=== PATIENT | male | born 1975 | race Caucasian/White ===

== ENCOUNTER 2016-10-10 06:56 | Emergency (ER) | payer OTHER ==
[~2016-10-10 06:56] MED LIST: PRIL20CA OR; TRAZ50TA OR; ZOLO50TA OR
[2016-10-10] MEDS ORDERED: METOCLOPRAMIDE INJ 10MG/2ML VIAL (J2765) As Ordered ONE (07:28)
[2016-10-10] MEDS ORDERED: MORPHINE 4 MG/ML 1ML SYRINGE As Ordered ONE (07:28)
[2016-10-10 07:53] LABS: BASO % 0.8 % (0.0-1.0); EOS # 0.1 K/mm3 (0.0-0.50); EOS % 2.7 % (0.0-3.0); LARGE UNSTAINED CELL # 0.1 K/mm3 (0.0-0.4); LARGE UNSTAINED CELL % 1.8 % (0.0-4.0); LYMPH # 1.3 K/mm3 (1.5-4.5); LYMPH % 24.6 % (24.0-44.0); MEAN CORPUSCULAR HEMOGLOBIN 30.7 pg (27.0-33.0); MEAN CORPUSCULAR HGB CONC 35.2 g/dl (32.0-36.5); MEAN CORPUSCULAR VOLUME 87.1 fl (80.0-96.0); MONO # 0.3 K/mm3 (0.0-0.8); MONO % 6.4 % (0.0-5.0); NEUTROPHILS # 3.4 K/mm3 (1.8-7.7); NEUTROPHILS % 63.7 % (36.0-66.0); PLATELET COUNT, AUTOMATED 203 k/mm3 (150-450); RED CELL DISTRIBUTION WIDTH 12.6 % (11.5-14.5); WHITE BLOOD COUNT 5.3 K/mm3 (4.0-10.0)
[2016-10-10 08:07] LABS: ALBUMIN/GLOBULIN RATIO 1.38 (1.00-1.93); ALKALINE PHOSPHATASE 86 U/L (45-117); ALT/SGPT 33 U/L (12-78); AMYLASE 50 U/L (25-115); ANION GAP 7 MEQ/L (8-16); AST/SGOT 24 U/L (15-37); BILIRUBIN,DIRECT 0.2 MG/DL (0.0-0.2); BILIRUBIN,TOTAL 0.6 MG/DL (0.2-1.0); BLOOD UREA NITROGEN 15 MG/DL (7-18); CALCIUM LEVEL 8.9 MG/DL (8.5-10.1); CARBON DIOXIDE LEVEL 27 MEQ/L (21-32); CHLORIDE LEVEL 107 MEQ/L (98-107); CREATININE FOR GFR 1.15 MG/DL (0.70-1.30); GLOMERULAR FILTRATION RATE > 60.0 (>60); GLUCOSE, FASTING 96 MG/DL (70-105); POTASSIUM SERUM 4.2 MEQ/L (3.5-5.1); SODIUM LEVEL 141 MEQ/L (136-145); TOTAL PROTEIN 6.9 GM/DL (6.4-8.2)
[2016-10-10] MEDS ORDERED: ISOVUE-370 76% 100ML VIAL (Q9967) As Ordered ONE (08:49)
--- NOTE | 2016-10-10 09:51 | EDDOCDS ---
Physician Documentation [facility] Name: Louie Alegrai Age: 41 yrs Sex: Male : 1975 Arrival Date: 10/10/2016 Time: 06:56 Bed I5 / M5 Private MD: Disposition: 10/10/16 09:46 Discharged to Home/Self Care. Impression: Nausea and vomiting - likely viral gastroenteritis, partial ileus, Diarrhea, unspecified. - Condition is Stable. - Discharge Instructions: Ileus, Clear Liquid Diet, Viral Gastroenteritis. - Prescriptions for ZOFRAN ODT 4 mg Oral - dissolve 1 tablet by ORAL route every 6-8 hours As needed do not chew, do not swallow whole; 10 tablet. - Medication Reconciliation, Local Pharmacy Hours form. - Follow up: Jeanie Selby [facility]; When: Call to arrange an appointment; Reason: Recheck today's complaints. Follow up: Emergency Department; When: As needed; Reason: Worsening of conditions. - Problem is new. - Symptoms have improved. - Notes: recommend home at rest today, clear liquid diet for next 24 hrs. advance as tolerated. arrange follow up with your physician. return to ER if worsening conditions Historical: - Allergies: no known allergies; - Home Meds: 1. Zoloft 25 mg Oral tab 1 tab once daily 2. BuSpar 15 mg oral tab tid 3. ropinirole Unknown oral nightly 4. mirtazapine Unknown Oral nightly 5. Xalatan 0.005 % Opht drop 1 drop once daily - PMHx: Anxiety; Depression; pigment dispersion glaucoma; - PSHx: esophageal replacement (1974); transverse colon replacement (1974); left thumb tendon; - Social history: Smoking status: Patient states former smoker of tobacco. No barriers to communication noted, The patient speaks fluent [place]. - Family history: Not pertinent. - : The pt / caregiver states he / she is not on anticoagulants. Home medication list is obtained from the patient. - Exposure Risk Screening:: None identified. Vital Signs: 10/10 07:06 BP 135 / 79; Pulse 57; Resp 20; Temp 99(O); Pulse Ox 95% on R/A; Weight 97.52 kg / jjr 214.99 lbs (R); Height 6 ft. 5 in. (195.58 cm) (R); Pain 7/10; 08:20 BP 121 / 69; Pulse 45; Resp 18; Temp 97.2(O); Pulse Ox 97% on R/A; Pain 4/10; dem1 09:47 BP 132 / 75; Pulse 45; Resp 18; Temp 96.9(O); Pulse Ox 99% ; Pain 4/10; srm 07:06 Body Mass Index 25.50 (97.52 kg, 195.58 cm) r MDM: 07:19 IV Saline Lock ordered. ar2 07:19 Undress patient appropriately for examination ordered. ar2 07:19 NS 0.9% 1000 ml IV at bolus once ordered. ar2 07:19 Metoclopramide 10 mg IV at 40 mg/hr once over 15 mins ordered. ar2 07:19 morphine 4 mg IVP once ordered. ar2 07:20 NOTHING BY MOUTH+DIET ordered. EDMS 07:21 Amylase Ordered. EDMS 07:21 Basic Metabolic Profile Ordered. EDMS 07:21 CBC with Diff Ordered. EDMS 07:21 Lipase Ordered. EDMS 07:21 Liver Profile Ordered. EDMS 07:22 Abdomen, Flat\E\Upright,PA Chest Ordered. EDMS 07:32 Financial registration complete. lg 07:48 [facility] Payment Agreement was scanned into [employer] and attached to record. lg 08:28 Basic Metabolic Profile Reviewed. ar2 08:28 CBC with Diff Reviewed. ar2 08:28 Amylase Reviewed. ar2 08:28 Lipase Reviewed. ar2 08:28 Liver Profile Reviewed. ar2 08:39 CT Chest With Contrast Ordered. EDMS Administered Medications: 07:32 Drug: NS 0.9% 1000 ml [sodium chloride 0.9 % intravenous solution] Route: IV; Rate: srm bolus; Site: left antecubital; 09:47 Follow up: BP 132 / 75; Pulse 45 bpm; Resp 18 bpm; Temp 96.9 Oral; Pulse Ox 99% ; Pain srm 4/10 Adult; IV Status: Completed infusion 07:32 Drug: morphine 4 mg [morphine 4 mg/mL intravenous cartridge (1 mL)] Route: IVP; Site: srm left antecubital; 08:32 Follow up: Response: Pain is decreased srm 07:34 Drug: Metoclopramide 10 mg [metoclopramide 5 mg/mL injection solution] Route: IV; Rate: srm 40 mg/hr; Infused Over: 15 mins; Site: left antecubital; 08:00 Follow up: IV Status: Completed infusion srm Signatures: Dispatcher [employer] Giuliana Jaimes RN RN Neeta Lowe, Erika Moses lg, RN RN jjr Robertshaw, Aaron, PA-C PA-C ar2 The chart was reviewed and I authenticate all verbal orders and agree with the evaluation and treatment provided.Attachments: 07:48 [facility] Payment Agreement lg MTDD
--- NOTE | 2016-10-10 09:51 | EDDOCDS ---
Nurse's Notes [facility] Name: Louie Alegria Age: 41 yrs Sex: Male : 1975 Arrival Date: 10/10/2016 Time: 06:56 Bed I5 / M5 Private MD: Diagnosis: Nausea and vomiting-likely viral gastroenteritis, partial ileus;Diarrhea, unspecified Presentation: 10/10 07:02 Presenting complaint: Patient states: sudden onset burning pain to abdomen 0610 this jjr morning, nausea and diarrhea since then. Adult Sepsis Screening: The patient does not have new or worsening altered mentation. Patient's respiratory rate is less than 22. Systolic blood pressure is greater than 100. Patient has a qSOFA score of 0- Negative Sepsis Screen. Suicide/Homicide risk assessment- the patient denies having any suicidal and/or homicidal ideations and does not present with any other emotional, behavioral or mental health complaints. Status: The patient is an active duty insurance service representative. Transition of care: patient was not received from another setting of care. 07:02 Acuity: YVONNE Level 3 jjr 07:02 Method Of Arrival: Walkin/Carried/Asstd jjr Triage Assessment: 07:05 General: Appears uncomfortable. Pain: Location: abdomen. Pt Declines HIV testing. GI: jjr Reports diarrhea, upper abdominal pain, nausea. Historical: - Allergies: no known allergies; - Home Meds: 1. Zoloft 25 mg Oral tab 1 tab once daily 2. BuSpar 15 mg oral tab tid 3. ropinirole Unknown oral nightly 4. mirtazapine Unknown Oral nightly 5. Xalatan 0.005 % Opht drop 1 drop once daily - PMHx: Anxiety; Depression; pigment dispersion glaucoma; - PSHx: esophageal replacement (1974); transverse colon replacement (1974); left thumb tendon; - Social history: Smoking status: Patient states former smoker of tobacco. No barriers to communication noted, The patient speaks fluent Uzbek. - Family history: Not pertinent. - : The pt / caregiver states he / she is not on anticoagulants. Home medication list is obtained from the patient. - Exposure Risk Screening:: None identified. Screenin:37 Screening information is obtained from the patient. Fall risk: No risks identified. srm Assistance ADL's: requires no assistance with activities of daily living. Abuse/DV Screen: The patient / caregiver reports he/she is: not in a situation that causes fear, pain or injury. Nutritional screening: No deficits noted. Advance Directives: There is no active DNR order. home support is adequate. Assessment: 07:37 General: Appears in no apparent distress, Behavior is anxious, appropriate for age, srm cooperative. Neurological: No deficits noted. Respiratory: Airway is patent Respiratory effort is even, unlabored, Breath sounds are clear bilaterally. GI: Abdomen is non- distended Bowel sounds present X 4 quads. Abd is soft and non tender X 4 quads. Derm: No deficits noted. 08:32 Pain: Pain currently is 3 out of 10 on a pain scale. Respiratory: Airway is patent srm Respiratory effort is even, unlabored. 09:05 General: Appears in no apparent distress, Behavior is appropriate for age, cooperative. srm Neurological: No deficits noted. EENT: No deficits noted. Respiratory: No deficits noted. GI: Abdomen is non- distended. Musculoskeletal: No deficits noted. 09:47 Reassessment: Patient appears in no apparent distress at this time. Patient states srm feeling better. Patient states symptoms have improved. Vital Signs: 07:06 BP 135 / 79; Pulse 57; Resp 20; Temp 99(O); Pulse Ox 95% on R/A; Weight 97.52 kg (R); jjr Height 6 ft. 5 in. (195.58 cm) (R); Pain 7/10; 08:20 BP 121 / 69; Pulse 45; Resp 18; Temp 97.2(O); Pulse Ox 97% on R/A; Pain 4/10; dem1 09:47 BP 132 / 75; Pulse 45; Resp 18; Temp 96.9(O); Pulse Ox 99% ; Pain 4/10; srm 07:06 Body Mass Index 25.50 (97.52 kg, 195.58 cm) [facility] Vitals: 07:06 Log In Time: October 10, 2016 at 06:57. jr ED Course: 06:57 Patient visited by Kartin Azar, Reg. hs2 06:57 Patient moved to Waiting hs2 07:03 Triage Initiated jjr 07:09 Patient moved to / jjr 07:10 Zia Hernandez PA-C is PHCP. ar2 07:10 Bebeto Ward MD is Attending Physician. ar2 07:10 Patient visited by Zia Hernandez PA-C. ar2 07:22 Patient visited by Ashlee Almaguer. dem1 07:22 Pt greeted and oriented to ED. Patient advised of names of staff involved in care, dem1 location of call chowdhury, wait times and NPO status. Patient has correct armband on for positive identification. Placed in gown. Bed in low position. Call light in reach. 07:27 Inserted saline lock: 20 gauge in left antecubital area and blood collected. srm 07:27 Amylase Sent. srm 07:27 Basic Metabolic Profile Sent. srm 07:27 CBC with Diff Sent. srm 07:27 Lipase Sent. srm 07:27 Liver Profile Sent. srm 07:37 The patient / caregiver is instructed regarding the plan of care and ED course. srm 07:38 Patient visited by Giuliana Mares, SHAGGY. srm 07:48 [facility] [place] Agreement was scanned into [employer] and attached to record. lg 08:21 Patient visited by Ashlee Almaguer. dem1 08:33 Patient visited by Giuliana Mares, SHAGGY. srm 08:54 Patient moved to ND srm 09:05 Patient visited by Giuliana Mares, SHAGGY. srm 09:05 Patient moved to I / srm 09:45 Jeanie Selby [facility] is Referral Physician. ar2 09:47 Discontinued lock intact, bleeding controlled, pressure dressing applied, No srm redness/swelling at site. No procedures done that require assistance. Administered Medications: 07:32 Drug: NS 0.9% 1000 ml [sodium chloride 0.9 % intravenous solution] Route: IV; Rate: srm bolus; Site: left antecubital; 09:47 Follow up: BP 132 / 75; Pulse 45 bpm; Resp 18 bpm; Temp 96.9 Oral; Pulse Ox 99% ; Pain srm 4/10 Adult; IV Status: Completed infusion 07:32 Drug: morphine 4 mg [morphine 4 mg/mL intravenous cartridge (1 mL)] Route: IVP; Site: srm left antecubital; 08:32 Follow up: Response: Pain is decreased srm 07:34 Drug: Metoclopramide 10 mg [metoclopramide 5 mg/mL injection solution] Route: IV; Rate: srm 40 mg/hr; Infused Over: 15 mins; Site: left antecubital; 08:00 Follow up: IV Status: Completed infusion srm Intake: 09:47 IV: 1000.00ml (NS); Total: 1000.00ml. srm Order Results: Lab Order: Amylase; SPEC'M 10/10/16 07:25 Test: AMYLASE; Value: 50; Range: 25-115; Units: U/L; Status: F Lab Order: Basic Metabolic Profile; [facility] 10/10/16 07:25 Test: GLUCOSE, FASTING; Value: 96; Range: 70-105; Units: MG/DL; Status: F Test: BLOOD UREA NITROGEN; Value: 15; Range: 7-18; Units: MG/DL; Status: F Test: CREATININE FOR GFR; Value: 1.15; Range: 0.70-1.30; Units: MG/DL; Status: F Test: GLOMERULAR FILTRATION RATE; Value: > 60.0; Range: >60; Status: F Test: SODIUM LEVEL; Value: 141; Range: 136-145; Units: MEQ/L; Status: F Test: POTASSIUM SERUM; Value: 4.2; Range: 3.5-5.1; Units: MEQ/L; Status: F Test: CHLORIDE LEVEL; Value: 107; Range: 98-107; Units: MEQ/L; Status: F Test: CARBON DIOXIDE LEVEL; Value: 27; Range: 21-32; Units: MEQ/L; Status: F Test: ANION GAP; Value: 7; Range: 8-16; Abnormal: Below low normal; Units: MEQ/L; Status: F Test: CALCIUM LEVEL; Value: 8.9; Range: 8.5-10.1; Units: MG/DL; Status: F Test Note: ; Units are mL/min/1.73 m2 Chronic Kidney Disease Staging per NKF: Stage I & II GFR >=60 Normal to Mildly Decreased Stage III GFR 30-59 Moderately Decreased Stage IV GFR 15-29 Severely Decreased Stage V GFR <15 Very Little GFR Left ESRD GFR <15 on [employer] Lab Order: CBC with Diff; SPEC' 10/10/16 07:25 Test: WHITE BLOOD COUNT; Value: 5.3; Range: 4.0-10.0; Units: K/mm3; Status: F Test: RED BLOOD COUNT; Value: 5.19; Range: 4.30-6.10; Units: M/mm3; Status: F Test: HEMOGLOBIN; Value: 15.9; Range: 14.0-18.0; Units: g/dl; Status: F Test: HEMATOCRIT; Value: 45.2; Range: 42.0-52.0; Units: %; Status: F Test: MEAN CORPUSCULAR VOLUME; Value: 87.1; Range: 80.0-96.0; Units: fl; Status: F Test: MEAN CORPUSCULAR HEMOGLOBIN; Value: 30.7; Range: 27.0-33.0; Units: pg; Status: F Test: MEAN CORPUSCULAR HGB CONC; Value: 35.2; Range: 32.0-36.5; Units: g/dl; Status: F Test: RED CELL DISTRIBUTION WIDTH; Value: 12.6; Range: 11.5-14.5; Units: %; Status: F Test: PLATELET COUNT, AUTOMATED; Value: 203; Range: 150-450; Units: k/mm3; Status: F Test: NEUTROPHILS %; Value: 63.7; Range: 36.0-66.0; Units: %; Status: F Test: LYMPH %; Value: 24.6; Range: 24.0-44.0; Units: %; Status: F Test: MONO %; Value: 6.4; Range: 0.0-5.0; Abnormal: Above high normal; Units: %; Status: F Test: EOS %; Value: 2.7; Range: 0.0-3.0; Units: %; Status: F Test: BASO %; Value: 0.8; Range: 0.0-1.0; Units: %; Status: F Test: LARGE UNSTAINED CELL %; Value: 1.8; Range: 0.0-4.0; Units: %; Status: F Test: NEUTROPHILS #; Value: 3.4; Range: 1.8-7.7; Units: K/mm3; Status: F Test: LYMPH #; Value: 1.3; Range: 1.5-4.5; Abnormal: Below low normal; Units: K/mm3; Status: F Test: MONO #; Value: 0.3; Range: 0.0-0.8; Units: K/mm3; Status: F Test: EOS #; Value: 0.1; Range: 0.0-0.50; Units: K/mm3; Status: F Test: BASO #; Value: 0.0; Range: 0.0-0.2; Units: K/mm3; Status: F Test: LARGE UNSTAINED CELL #; Value: 0.1; Range: 0.0-0.4; Units: K/mm3; Status: F Lab Order: Lipase; SPEC'M 10/10/16 07:25 Test: LIPASE; Value: 159; Range: 73-393; Units: U/L; Status: F Lab Order: Liver Profile; SPEC'M 10/10/16 07:25 Test: AST/SGOT; Value: 24; Range: 15-37; Units: U/L; Status: F Test: ALT/SGPT; Value: 33; Range: 12-78; Units: U/L; Status: F Test: ALKALINE PHOSPHATASE; Value: 86; Range: 45-117; Units: U/L; Status: F Test: BILIRUBIN,TOTAL; Value: 0.6; Range: 0.2-1.0; Units: MG/DL; Status: F Test: BILIRUBIN,DIRECT; Value: 0.2; Range: 0.0-0.2; Units: MG/DL; Status: F Test: TOTAL PROTEIN; Value: 6.9; Range: 6.4-8.2; Units: GM/DL; Status: F Test: ALBUMIN; Value: 4.0; Range: 3.2-5.2; Units: GM/DL; Status: F Test: ALBUMIN/GLOBULIN RATIO; Value: 1.38; Range: 1.00-1.93; Status: F Outcome: 09:46 Discharge ordered by Provider. ar2 09:47 Discharge Assessment: Patient awake, alert and oriented x 3. No cognitive and/or srm functional deficits noted. Patient verbalized understanding of disposition instructions. patient administered narcotics - yes. Pt provided with safe discharge. CT Study completed. 09:50 The following High Risk Discharge criteria are identified: None. Discharged to home srm ambulatory, with friend. Condition: stable Condition: improved. Discharge instructions given to patient, Instructed on discharge instructions, follow up and referral plans. medication usage, diet, Demonstrated understanding of instructions, medications, Pt was receptive of discharge instructions/ teaching. Prescriptions given X 1. Property :Personal belongings accompany Pt. 09:50 Patient left the ED. srm Signatures: Giuliana Mares, RN RN Neeta Lowe, Reg Reg lg Erika Steven, RN RN Zia Padilla, AARON PADonny ar2 Ashlee Almaguer dem1 Katrin Azar, Reg Reg hs2 MTDD
--- NOTE | 2016-10-10 11:17 | REP ---
Abdominal series: Four views. History: Generalized abdominal pain and nausea. No comparison studies. Findings: Upright chest radiograph shows increased density behind the heart and overall volume loss in the left hemithorax consistent with left lower lobe collapse. There is an atypical collection of what appears to be intrapleural air in the left apex extending medially to the left lung along the left mediastinum. There is soft tissue density adjacent to the aortic knob in the left mediastinal region. The right lung is clear. Heart is not enlarged. There is no evidence of free subdiaphragmatic air. Supine and erect views of the abdomen show multiple sutures indicating prior surgery in the left upper quadrant. There are air-fluid levels in mildly dilated central abdominal small bowel loops consistent with partial small bowel obstruction or focal ileus. There is stool in the right colon. No colonic distension is seen. There are degenerative changes at L4-5. No acute bony abnormality is seen. Psoas margins and flank stripes are intact. Impression: 1. Complex findings in the left chest including an apparent small pneumothorax, evidence of collapse of the left lower lobe, and suggestion of bullous change in the left apex. Recommend chest CT with IV contrast. 2. Air-fluid levels in dilated central abdominal small bowel loops with surgical clips in the left upper quadrant. Partial small bowel obstruction versus localized ileus. Signed by Trace Reece MD 10/10/2016 11:45 A
--- NOTE | 2016-10-10 11:50 | REP ---
CT study of the chest with IV contrast: History: Abnormal chest x-ray. Additional history has been provided by the referring provider that the patient had esophageal atresia at and a gastric pull-through procedure was performed. CT contrast dose: 75 ml of Isovue [address] findings: The patient is status post colonic interposition. This explains the atypical appearance of the chest x-ray. There is minimal linear fibrosis in the left lower lobe. Lung kincaid are otherwise clear. There is no evidence of hilar or mediastinal mass or adenopathy. No pleural or pericardial effusion is seen. No cardiac or vascular abnormality is observed. The left vertebral artery takes a direct aortic origin, which is a fairly common normal variant. No adrenal abnormality is seen. Visualized upper abdominal structures are unremarkable except for postoperative changes in the left upper quadrant related to the colo-gastric anastomosis. There is a tract extending out to the left upper quadrant of the abdomen in the subcostal region related to this prior surgery as well. Impression: Status post colonic interposition for esophageal atresia. No active disease in the chest. Signed by Trace Reece MD 10/10/2016 07:24 P
--- NOTE | 2016-10-12 10:51 | EDDOCDS ---
Nurse's Notes [facility] Name: Louie Alegria Age: 41 yrs Sex: Male : 1975 Arrival Date: 10/10/2016 Time: 06:56 Bed I5 / M5 Private MD: Diagnosis: Nausea and vomiting-likely viral gastroenteritis, partial ileus;Diarrhea, unspecified Presentation: 10/10 07:02 Presenting complaint: Patient states: sudden onset burning pain to abdomen 0610 this jjr morning, nausea and diarrhea since then. Adult Sepsis Screening: The patient does not have new or worsening altered mentation. Patient's respiratory rate is less than 22. Systolic blood pressure is greater than 100. Patient has a qSOFA score of 0- Negative Sepsis Screen. Suicide/Homicide risk assessment- the patient denies having any suicidal and/or homicidal ideations and does not present with any other emotional, behavioral or mental health complaints. Status: The patient is an active duty mechanic field service. Transition of care: patient was not received from another setting of care. 07:02 Acuity: YVONNE Level 3 jjr 07:02 Method Of Arrival: Walkin/Carried/Asstd jjr Triage Assessment: 07:05 General: Appears uncomfortable. Pain: Location: abdomen. Pt Declines HIV testing. GI: jjr Reports diarrhea, upper abdominal pain, nausea. Historical: - Allergies: no known allergies; - Home Meds: 1. Zoloft 25 mg Oral tab 1 tab once daily 2. BuSpar 15 mg oral tab tid 3. ropinirole Unknown oral nightly 4. mirtazapine Unknown Oral nightly 5. Xalatan 0.005 % Opht drop 1 drop once daily - PMHx: Anxiety; Depression; pigment dispersion glaucoma; - PSHx: esophageal replacement (1974); transverse colon replacement (1974); left thumb tendon; - Social history: Smoking status: Patient states former smoker of tobacco. No barriers to communication noted, The patient speaks fluent Romanian. - Family history: Not pertinent. - : The pt / caregiver states he / she is not on anticoagulants. Home medication list is obtained from the patient. - Exposure Risk Screening:: None identified. Screenin:37 Screening information is obtained from the patient. Fall risk: No risks identified. srm Assistance ADL's: requires no assistance with activities of daily living. Abuse/DV Screen: The patient / caregiver reports he/she is: not in a situation that causes fear, pain or injury. Nutritional screening: No deficits noted. Advance Directives: There is no active DNR order. home support is adequate. Assessment: 07:37 General: Appears in no apparent distress, Behavior is anxious, appropriate for age, srm cooperative. Neurological: No deficits noted. Respiratory: Airway is patent Respiratory effort is even, unlabored, Breath sounds are clear bilaterally. GI: Abdomen is non- distended Bowel sounds present X 4 quads. Abd is soft and non tender X 4 quads. Derm: No deficits noted. 08:32 Pain: Pain currently is 3 out of 10 on a pain scale. Respiratory: Airway is patent srm Respiratory effort is even, unlabored. 09:05 General: Appears in no apparent distress, Behavior is appropriate for age, cooperative. srm Neurological: No deficits noted. EENT: No deficits noted. Respiratory: No deficits noted. GI: Abdomen is non- distended. Musculoskeletal: No deficits noted. 09:47 Reassessment: Patient appears in no apparent distress at this time. Patient states srm feeling better. Patient states symptoms have improved. Vital Signs: 07:06 BP 135 / 79; Pulse 57; Resp 20; Temp 99(O); Pulse Ox 95% on R/A; Weight 97.52 kg (R); jjr Height 6 ft. 5 in. (195.58 cm) (R); Pain 7/10; 08:20 BP 121 / 69; Pulse 45; Resp 18; Temp 97.2(O); Pulse Ox 97% on R/A; Pain 4/10; dem1 09:47 BP 132 / 75; Pulse 45; Resp 18; Temp 96.9(O); Pulse Ox 99% ; Pain 4/10; srm 07:06 Body Mass Index 25.50 (97.52 kg, 195.58 cm) [facility] Vitals: 07:06 Log In Time: October 10, 2016 at 06:57. jr ED Course: 06:57 Patient visited by Katrin Azar, Reg. hs2 06:57 Patient moved to Waiting hs2 07:03 Triage Initiated jjr 07:09 Patient moved to / jjr 07:10 Zia Hernandez PA-C is PHCP. ar2 07:10 Bebeto Ward MD is Attending Physician. ar2 07:10 Patient visited by Zia Hernandez PA-C. ar2 07:22 Patient visited by Ashlee Almaguer. dem1 07:22 Pt greeted and oriented to ED. Patient advised of names of staff involved in care, dem1 location of call chowdhury, wait times and NPO status. Patient has correct armband on for positive identification. Placed in gown. Bed in low position. Call light in reach. 07:27 Inserted saline lock: 20 gauge in left antecubital area and blood collected. srm 07:27 Amylase Sent. srm 07:27 Basic Metabolic Profile Sent. srm 07:27 CBC with Diff Sent. srm 07:27 Lipase Sent. srm 07:27 Liver Profile Sent. srm 07:37 The patient / caregiver is instructed regarding the plan of care and ED course. srm 07:38 Patient visited by Giuliana Mares, SHAGGY. srm 07:48 [facility] [place] into [employer] and attached to record. lg 08:21 Patient visited by Ashlee Almaguer. dem1 08:33 Patient visited by Giuliana Mares, SHAGGY. srm 08:[address] srm 09:05 Patient visited by Giuliana Mares, SHAGGY. srm 09:05 Patient moved to I5 / M5 srm 09:45 Jeanie Selby [facility] is Referral Physician. ar2 09:47 Discontinued lock intact, bleeding controlled, pressure dressing applied, No srm redness/swelling at site. No procedures done that require assistance. 11:55 Abdomen, Flat\E\Upright,PA Chest Returned. EDMS 11:56 CT Chest With Contrast Returned. EDMS 15:20 T-Sheet-- Draft Copy was scanned into [employer] and attached to record. gb 15:21 Radiology Report was scanned into [employer] and attached to record. gb Administered Medications: 07:32 Drug: NS 0.9% 1000 ml [sodium chloride 0.9 % intravenous solution] Route: IV; Rate: srm bolus; Site: left antecubital; 09:47 Follow up: BP 132 / 75; Pulse 45 bpm; Resp 18 bpm; Temp 96.9 Oral; Pulse Ox 99% ; Pain srm 4/10 Adult; IV Status: Completed infusion 07:32 Drug: morphine 4 mg [morphine 4 mg/mL intravenous cartridge (1 mL)] Route: IVP; Site: [facility] left antecubital; 08:32 Follow up: Response: Pain is decreased [facility] 07:34 Drug: Metoclopramide 10 mg [metoclopramide 5 mg/mL injection solution] Route: IV; Rate: srm 40 mg/hr; Infused Over: 15 mins; Site: left antecubital; 08:00 Follow up: IV Status: Completed infusion srm Intake: 09:47 IV: 1000.00ml (NS); Total: 1000.00ml. srm Order Results: Lab Order: Amylase; SPEC' 10/10/16 07:25 Test: AMYLASE; Value: 50; Range: 25-115; Units: U/L; Status: F Lab Order: Basic Metabolic Profile; [facility]' 10/10/16 07:25 Test: GLUCOSE, FASTING; Value: 96; Range: 70-105; Units: MG/DL; Status: F Test: BLOOD UREA NITROGEN; Value: 15; Range: 7-18; Units: MG/DL; Status: F Test: CREATININE FOR GFR; Value: 1.15; Range: 0.70-1.30; Units: MG/DL; Status: F Test: GLOMERULAR FILTRATION RATE; Value: > 60.0; Range: >60; Status: F Test: SODIUM LEVEL; Value: 141; Range: 136-145; Units: MEQ/L; Status: F Test: POTASSIUM SERUM; Value: 4.2; Range: 3.5-5.1; Units: MEQ/L; Status: F Test: CHLORIDE LEVEL; Value: 107; Range: 98-107; Units: MEQ/L; Status: F Test: CARBON DIOXIDE LEVEL; Value: 27; Range: 21-32; Units: MEQ/L; Status: F Test: ANION GAP; Value: 7; Range: 8-16; Abnormal: Below low normal; Units: MEQ/L; Status: F Test: CALCIUM LEVEL; Value: 8.9; Range: 8.5-10.1; Units: MG/DL; Status: F Test Note: ; Units are mL/min/1.73 m2 Chronic Kidney Disease Staging per NKF: Stage I & II GFR >=60 Normal to Mildly Decreased Stage III GFR 30-59 Moderately Decreased Stage IV GFR 15-29 Severely Decreased Stage V GFR <15 Very Little GFR Left ESRD GFR <15 on [facility] Lab Order: CBC with Diff; ROMAINE'Anuradha 10/10/16 07:25 Test: WHITE BLOOD COUNT; Value: 5.3; Range: 4.0-10.0; Units: K/mm3; Status: F Test: RED BLOOD COUNT; Value: 5.19; Range: 4.30-6.10; Units: M/mm3; Status: F Test: HEMOGLOBIN; Value: 15.9; Range: 14.0-18.0; Units: g/dl; Status: F Test: HEMATOCRIT; Value: 45.2; Range: 42.0-52.0; Units: %; Status: F Test: MEAN CORPUSCULAR VOLUME; Value: 87.1; Range: 80.0-96.0; Units: fl; Status: F Test: MEAN CORPUSCULAR HEMOGLOBIN; Value: 30.7; Range: 27.0-33.0; Units: pg; Status: F Test: MEAN CORPUSCULAR HGB CONC; Value: 35.2; Range: 32.0-36.5; Units: g/dl; Status: F Test: RED CELL DISTRIBUTION WIDTH; Value: 12.6; Range: 11.5-14.5; Units: %; Status: F Test: PLATELET COUNT, AUTOMATED; Value: 203; Range: 150-450; Units: k/mm3; Status: F Test: NEUTROPHILS %; Value: 63.7; Range: 36.0-66.0; Units: %; Status: F Test: LYMPH %; Value: 24.6; Range: 24.0-44.0; Units: %; Status: F Test: MONO %; Value: 6.4; Range: 0.0-5.0; Abnormal: Above high normal; Units: %; Status: F Test: EOS %; Value: 2.7; Range: 0.0-3.0; Units: %; Status: F Test: BASO %; Value: 0.8; Range: 0.0-1.0; Units: %; Status: F Test: LARGE UNSTAINED CELL %; Value: 1.8; Range: 0.0-4.0; Units: %; Status: F Test: NEUTROPHILS #; Value: 3.4; Range: 1.8-7.7; Units: K/mm3; Status: F Test: LYMPH #; Value: 1.3; Range: 1.5-4.5; Abnormal: Below low normal; Units: K/mm3; Status: F Test: MONO #; Value: 0.3; Range: 0.0-0.8; Units: K/mm3; Status: F Test: EOS #; Value: 0.1; Range: 0.0-0.50; Units: K/mm3; Status: F Test: BASO #; Value: 0.0; Range: 0.0-0.2; Units: K/mm3; Status: F Test: LARGE UNSTAINED CELL #; Value: 0.1; Range: 0.0-0.4; Units: K/mm3; Status: F Lab Order: Lipase; SPEC' 10/10/16 07:25 Test: LIPASE; Value: 159; Range: 73-393; Units: U/L; Status: F Lab Order: Liver Profile; SPEC' 10/10/16 07:25 Test: AST/SGOT; Value: 24; Range: 15-37; Units: U/L; Status: F Test: ALT/SGPT; Value: 33; Range: 12-78; Units: U/L; Status: F Test: ALKALINE PHOSPHATASE; Value: 86; Range: 45-117; Units: U/L; Status: F Test: BILIRUBIN,TOTAL; Value: 0.6; Range: 0.2-1.0; Units: MG/DL; Status: F Test: BILIRUBIN,DIRECT; Value: 0.2; Range: 0.0-0.2; Units: MG/DL; Status: F Test: TOTAL PROTEIN; Value: 6.9; Range: 6.4-8.2; Units: GM/DL; Status: F Test: ALBUMIN; Value: 4.0; Range: 3.2-5.2; Units: GM/DL; Status: F Test: ALBUMIN/GLOBULIN RATIO; Value: 1.38; Range: 1.00-1.93; Status: F Radiology Order: Abdomen, Flat\E\Upright,PA Chest Test: Abdomen, Flat\E\Upright,PA Chest REASON FOR EXAMINATION: generalized abd pain, nausea; Abdominal series: Four views.; ; History: Generalized abdominal pain and nausea.; ; No comparison studies.; ; Findings: Upright chest radiograph shows increased density behind the heart and; overall volume loss in the left hemithorax consistent with left lower lobe; collapse. There is an atypical collection of what appears to be intrapleural air; in the left apex extending medially to the left lung along the left mediastinum.; There is soft tissue density adjacent to the aortic knob in the left mediastinal; region. The right lung is clear. Heart is not enlarged. There is no evidence; of free subdiaphragmatic air.; ; Supine and erect views of the abdomen show multiple sutures indicating prior; surgery in the left upper quadrant. There are air-fluid levels in mildly dilated; central abdominal small bowel loops consistent with partial small bowel; obstruction or focal ileus. There is stool in the right colon. No colonic; distension is seen. There are degenerative changes at L4-5. No acute bony; abnormality is seen. Psoas margins and flank stripes are intact.; ; Impression:; ; 1. Complex findings in the left chest including an apparent small pneumothorax,; evidence of collapse of the left lower lobe, and suggestion of bullous change in; the left apex. Recommend chest CT with IV contrast.; ; 2. Air-fluid levels in dilated central abdominal small bowel loops with surgical; clips in the left upper quadrant. Partial small bowel obstruction versus; localized ileus.; ; ; Signed by; Trace Reece MD 10/10/2016 11:45 A; Radiology Order: CT Chest With Contrast Test: CT Chest With Contrast REASON FOR EXAMINATION: r/o pneumothorax; CT study of the chest with IV contrast:; ; History: Abnormal chest x-ray.; ; Additional history has been provided by the referring provider that the patient; had esophageal atresia at and a gastric pull-through procedure was; performed.; ; CT contrast dose: 75 ml of Isovue 370 is administered intravenously.; ; CT findings: The patient is status post colonic interposition. This explains; the atypical appearance of the chest x-ray. There is minimal linear fibrosis in; the left lower lobe. Lung kincaid are otherwise clear. There is no evidence of; hilar or mediastinal mass or adenopathy. No pleural or pericardial effusion is; seen. No cardiac or vascular abnormality is observed. The left vertebral artery; takes a direct aortic origin, which is a fairly common normal variant.; ; No adrenal abnormality is seen. Visualized upper abdominal structures are; unremarkable except for postoperative changes in the left upper quadrant related; to the colo-gastric anastomosis. There is a tract extending out to the left; upper quadrant of the abdomen in the subcostal region related to this prior; surgery as well.; ; Impression:; ; Status post colonic interposition for esophageal atresia. No active disease in; the chest.; ; ; Signed by; Trace Reece MD 10/10/2016 07:24 P; Outcome: 09:46 Discharge ordered by Provider. ar2 09:47 Discharge Assessment: Patient awake, alert and oriented x 3. No cognitive and/or srm functional deficits noted. Patient verbalized understanding of disposition instructions. patient administered narcotics - yes. Pt provided with safe discharge. CT Study completed. 09:50 The following High Risk Discharge criteria are identified: None. Discharged to home srm ambulatory, with friend. Condition: stable Condition: improved. Discharge instructions given to patient, Instructed on discharge instructions, follow up and referral plans. medication usage, diet, Demonstrated understanding of instructions, medications, Pt was receptive of discharge instructions/ teaching. Prescriptions given X 1. Property :Personal belongings accompany Pt. 09:50 Patient left the ED. srm Signatures: Dispatcher [employer] EDMS Giuliana Mares, RN RN srm Darshana Manzo, Reg Reg gb Neeta Guzman, Reg Reg lg Erika Steven, RN RN Zia Padilla, AARON WALKER ar2 Ashlee Almaguer dem1 Katrin Azar, Reg Reg hs2 Chart Complete MTDD
--- NOTE | 2016-10-12 10:51 | EDDOCDS ---
Physician Documentation [facility] Name: Louie Alegria Age: 41 yrs Sex: Male : 1975 Arrival Date: 10/10/2016 Time: 06:56 Bed I5 / M5 Private MD: Disposition: 10/10/16 09:46 Discharged to Home/Self Care. Impression: Nausea and vomiting - likely viral gastroenteritis, partial ileus, Diarrhea, unspecified. - Condition is Stable. - Discharge Instructions: Ileus, Clear Liquid Diet, Viral Gastroenteritis. - Prescriptions for ZOFRAN ODT 4 mg Oral - dissolve 1 tablet by ORAL route every 6-8 hours As needed do not chew, do not swallow whole; 10 tablet. - Medication Reconciliation, Local Pharmacy Hours form. - Follow up: Jeanie Selby [facility]; When: Call to arrange an appointment; Reason: Recheck today's complaints. Follow up: Emergency Department; When: As needed; Reason: Worsening of conditions. - Problem is new. - Symptoms have improved. - Notes: recommend home at rest today, clear liquid diet for next 24 hrs. advance as tolerated. arrange follow up with your physician. return to ER if worsening conditions Historical: - Allergies: no known allergies; - Home Meds: 1. Zoloft 25 mg Oral tab 1 tab once daily 2. BuSpar 15 mg oral tab tid 3. ropinirole Unknown oral nightly 4. mirtazapine Unknown Oral nightly 5. Xalatan 0.005 % Opht drop 1 drop once daily - PMHx: Anxiety; Depression; pigment dispersion glaucoma; - PSHx: esophageal replacement (1974); transverse colon replacement (1974); left thumb tendon; - Social history: Smoking status: Patient states former smoker of tobacco. No barriers to communication noted, The patient speaks fluent Kyrgyz. - Family history: Not pertinent. - : The pt / caregiver states he / she is not on anticoagulants. Home medication list is obtained from the patient. - Exposure Risk Screening:: None identified. Vital Signs: 10/10 07:06 BP 135 / 79; Pulse 57; Resp 20; Temp 99(O); Pulse Ox 95% on R/A; Weight 97.52 kg / jjr 214.99 lbs (R); Height 6 ft. 5 in. (195.58 cm) (R); Pain 7/10; 08:20 BP 121 / 69; Pulse 45; Resp 18; Temp 97.2(O); Pulse Ox 97% on R/A; Pain 4/10; dem1 09:47 BP 132 / 75; Pulse 45; Resp 18; Temp 96.9(O); Pulse Ox 99% ; Pain 4/10; srm 07:06 Body Mass Index 25.50 (97.52 kg, 195.58 cm) r MDM: 07:19 IV Saline Lock ordered. ar2 07:19 Undress patient appropriately for examination ordered. ar2 07:19 NS 0.9% 1000 ml IV at bolus once ordered. ar2 07:19 Metoclopramide 10 mg IV at 40 mg/hr once over 15 mins ordered. ar2 07:19 morphine 4 mg IVP once ordered. ar2 07:20 NOTHING BY MOUTH+DIET ordered. EDMS 07:21 Amylase Ordered. EDMS 07:21 Basic Metabolic Profile Ordered. EDMS 07:21 CBC with Diff Ordered. EDMS 07:21 Lipase Ordered. EDMS 07:21 Liver Profile Ordered. EDMS 07:22 Abdomen, Flat\E\Upright,PA Chest Ordered. EDMS 07:32 Financial registration complete. lg 07:48 [facility] [place] Payment Agreement was scanned into [employer] and attached to record. lg 08:28 Basic Metabolic Profile Reviewed. ar2 08:28 CBC with Diff Reviewed. ar2 08:28 Amylase Reviewed. ar2 08:28 Lipase Reviewed. ar2 08:28 Liver Profile Reviewed. ar2 08:39 CT Chest With Contrast Ordered. EDMS 15:20 T-Sheet-- Draft Copy was scanned into [employer] and attached to record. gb 15:21 Radiology Report was scanned into [employer] and attached to record. gb 10/11 08:20 Abdomen, Flat\E\Upright,PA Chest Reviewed. sd1 08:20 CT Chest With Contrast Reviewed. sd1 Administered Medications: 10/10 07:32 Drug: NS 0.9% 1000 ml [sodium chloride 0.9 % intravenous solution] Route: IV; Rate: srm bolus; Site: left antecubital; 09:47 Follow up: BP 132 / 75; Pulse 45 bpm; Resp 18 bpm; Temp 96.9 Oral; Pulse Ox 99% ; Pain srm 4/10 Adult; IV Status: Completed infusion 07:32 Drug: morphine 4 mg [morphine 4 mg/mL intravenous cartridge (1 mL)] Route: IVP; Site: srm left antecubital; 08:32 Follow up: Response: Pain is decreased srm 07:34 Drug: Metoclopramide 10 mg [metoclopramide 5 mg/mL injection solution] Route: IV; Rate: srm 40 mg/hr; Infused Over: 15 mins; Site: left antecubital; 08:00 Follow up: IV Status: Completed infusion srm Signatures: Dispatcher [employer] Dina Michel MD MD sd1 Giuliana Mares, RN RN srm Darshana Manzo, Reg Reg gb Neeta Guzman, Reg Reg lg Erika Steven RN RN Zia Padilla PA-C PA-C ar2 The chart was reviewed and I authenticate all verbal orders and agree with the evaluation and treatment provided.Attachments: 07:48 [facility] Payment Agreement lg 15:20 T-Sheet-- Draft Copy gb Chart Complete [email or web address]
--- NOTE | 2016-10-12 10:51 | EDDOCDS ---
Physician Documentation [facility] Name: Louie Alegria Age: 41 yrs Sex: Male : 1975 Arrival Date: 10/10/2016 Time: 06:56 Bed I5 / M5 Private MD: Disposition: 10/10/16 09:46 Discharged to Home/Self Care. Impression: Nausea and vomiting - likely viral gastroenteritis, partial ileus, Diarrhea, unspecified. - Condition is Stable. - Discharge Instructions: Ileus, Clear Liquid Diet, Viral Gastroenteritis. - Prescriptions for ZOFRAN ODT 4 mg Oral - dissolve 1 tablet by ORAL route every 6-8 hours As needed do not chew, do not swallow whole; 10 tablet. - Medication Reconciliation, Local Pharmacy Hours form. - Follow up: Jeanie Selby [facility]; When: Call to arrange an appointment; Reason: Recheck today's complaints. Follow up: Emergency Department; When: As needed; Reason: Worsening of conditions. - Problem is new. - Symptoms have improved. - Notes: recommend home at rest today, clear liquid diet for next 24 hrs. advance as tolerated. arrange follow up with your physician. return to ER if worsening conditions Historical: - Allergies: no known allergies; - Home Meds: 1. Zoloft 25 mg Oral tab 1 tab once daily 2. BuSpar 15 mg oral tab tid 3. ropinirole Unknown oral nightly 4. mirtazapine Unknown Oral nightly 5. Xalatan 0.005 % Opht drop 1 drop once daily - PMHx: Anxiety; Depression; pigment dispersion glaucoma; - PSHx: esophageal replacement (1974); transverse colon replacement (1974); left thumb tendon; - Social history: Smoking status: Patient states former smoker of tobacco. No barriers to communication noted, The patient speaks fluent Chinese. - Family history: Not pertinent. - : The pt / caregiver states he / she is not on anticoagulants. Home medication list is obtained from the patient. - Exposure Risk Screening:: None identified. Vital Signs: 10/10 07:06 BP 135 / 79; Pulse 57; Resp 20; Temp 99(O); Pulse Ox 95% on R/A; Weight 97.52 kg / jjr 214.99 lbs (R); Height 6 ft. 5 in. (195.58 cm) (R); Pain 7/10; 08:20 BP 121 / 69; Pulse 45; Resp 18; Temp 97.2(O); Pulse Ox 97% on R/A; Pain 4/10; dem1 09:47 BP 132 / 75; Pulse 45; Resp 18; Temp 96.9(O); Pulse Ox 99% ; Pain 4/10; srm 07:06 Body Mass Index 25.50 (97.52 kg, 195.58 cm) r MDM: 07:19 IV Saline Lock ordered. ar2 07:19 Undress patient appropriately for examination ordered. ar2 07:19 NS 0.9% 1000 ml IV at bolus once ordered. ar2 07:19 Metoclopramide 10 mg IV at 40 mg/hr once over 15 mins ordered. ar2 07:19 morphine 4 mg IVP once ordered. ar2 07:20 NOTHING BY MOUTH+DIET ordered. EDMS 07:21 Amylase Ordered. EDMS 07:21 Basic Metabolic Profile Ordered. EDMS 07:21 CBC with Diff Ordered. EDMS 07:21 Lipase Ordered. EDMS 07:21 Liver Profile Ordered. EDMS 07:22 Abdomen, Flat\E\Upright,PA Chest Ordered. EDMS 07:32 Financial registration complete. lg 07:48 [facility] [place] Payment Agreement was scanned into [employer] and attached to record. lg 08:28 Basic Metabolic Profile Reviewed. ar2 08:28 CBC with Diff Reviewed. ar2 08:28 Amylase Reviewed. ar2 08:28 Lipase Reviewed. ar2 08:28 Liver Profile Reviewed. ar2 08:39 CT Chest With Contrast Ordered. EDMS 15:20 T-Sheet-- Draft Copy was scanned into [employer] and attached to record. gb 15:21 Radiology Report was scanned into [employer] and attached to record. gb 10/11 08:20 Abdomen, Flat\E\Upright,PA Chest Reviewed. sd1 08:20 CT Chest With Contrast Reviewed. sd1 Administered Medications: 10/10 07:32 Drug: NS 0.9% 1000 ml [sodium chloride 0.9 % intravenous solution] Route: IV; Rate: srm bolus; Site: left antecubital; 09:47 Follow up: BP 132 / 75; Pulse 45 bpm; Resp 18 bpm; Temp 96.9 Oral; Pulse Ox 99% ; Pain srm 4/10 Adult; IV Status: Completed infusion 07:32 Drug: morphine 4 mg [morphine 4 mg/mL intravenous cartridge (1 mL)] Route: IVP; Site: srm left antecubital; 08:32 Follow up: Response: Pain is decreased srm 07:34 Drug: Metoclopramide 10 mg [metoclopramide 5 mg/mL injection solution] Route: IV; Rate: srm 40 mg/hr; Infused Over: 15 mins; Site: left antecubital; 08:00 Follow up: IV Status: Completed infusion srm Signatures: Dispatcher [employer] Dina Michel MD MD sd1 Giuliana Mares, RN RN srm Darshana Manzo, Reg Reg gb Neeta Guzman, Reg Reg lg Erika Steven RN RN Zia Padilla PA-C PA-C ar2 The chart was reviewed and I authenticate all verbal orders and agree with the evaluation and treatment provided.Attachments: 07:48 [facility] Payment Agreement lg 15:20 T-Sheet-- Draft Copy gb Chart [facility]
== END 2016-10-10 09:50 | disposition home or self-care (01) ==
LOC: M ED 06:56
DX: A08.4 Viral intestinal infection, unspecified (principal); F41.9 Anxiety disorder, unspecified; F33.9 Major depressive disorder, recurrent, unspecified; H40.139 Pigmentary glaucoma, unspecified eye; Z79.899 Other long term (current) drug therapy; Z87.891 Personal history of nicotine dependence; Z98.890 Other specified postprocedural states
CPT/HCPCS: 36415; 71260; 74022; 80048; 80076; 82150; 83690; 85025; 96361; 96365; 96375; 99284; J2765; Q9967

== ENCOUNTER 2017-08-03 08:21 | Day surgery (SDC) | payer OTHER ==
[~2017-08-03] VITALS: Ht 198.1 cm; Wt 99.3 kg
[~2017-08-03 08:21] MED LIST changes: +BUSP15TA47 PO; +LATA5OPD OU; +MIRT15TA3 PO; +ROPI0.5T PO; +VITA-122 PO
[2017-08-03] MEDS ORDERED: NS 1,000 ML IV ONE (08:45)
[2017-08-03] MEDS ORDERED: PROPOFOL 200 MG/20 ML VIAL As Ordered ONE (09:39)
[2017-08-03] MEDS ORDERED: LIDOCAINE 2% INJ 100 MG/5 ML SDV (FOR ANES.) As Ordered ONE (09:39)
[2017-08-03 11:04] VITALS: BP 94/56
--- NOTE | 2017-08-03 11:18 | ROOR ---
Patient Name: Louie Alegria Procedure Date: 08/03/2017 9:56 AM Date of : 1975 Age: 41 Room: [facility] Gender: Male Note Status: Finalized Procedure: Colonoscopy Indications: Chronic diarrhea Providers: Axel Guillen MD Referring MD: SACHI MEJIA MD Requesting Provider: Medicines: Monitored Anesthesia Care Complications: No immediate complications. Procedure: Pre-Anesthesia Assessment: - Prior to the procedure, a History and Physical was performed, and patient medications and allergies were reviewed. The patient is competent. The risks and benefits of the procedure and the sedation options and risks were discussed with the patient. All questions were answered and informed consent was obtained. Patient identification and proposed procedure were verified by the physician, the nurse and the crankshaft straightener in the procedure room. Mental Status Examination: alert and oriented. Airway Examination: normal oropharyngeal airway and neck mobility. Respiratory Examination: clear to auscultation. CV Examination: normal. Prophylactic Antibiotics: The patient does not require prophylactic antibiotics. Prior Anticoagulants: The patient has taken no previous anticoagulant or antiplatelet agents. ASA Grade Assessment: II - A patient with mild systemic disease. After reviewing the risks and benefits, the patient was deemed in satisfactory condition to undergo the procedure. The anesthesia plan was to use monitored anesthesia care (MAC). Immediately prior to administration of medications, the patient was re-assessed for adequacy to receive sedatives. The heart rate, respiratory rate, oxygen saturations, blood pressure, adequacy of pulmonary ventilation, and response to care were monitored throughout the procedure. The physical status of the patient was re-assessed after the procedure. The Colonoscope was introduced through the anus and advanced to the terminal ileum, with identification of the appendiceal orifice and IC valve. The colonoscopy was performed without difficulty. The patient tolerated the procedure well. The quality of the bowel preparation was adequate to identify polyps 6 mm and larger in size and fair. The terminal ileum, ileocecal valve, appendiceal orifice, and rectum were photographed. Scope insertion time was 3 minutes. Scope withdrawal time was 8 minutes. The total duration of the procedure was 12 minutes. Findings: The perianal and digital rectal examinations were normal. A 3 mm polyp was found in the ascending colon. The polyp was sessile. The polyp was removed with a cold biopsy forceps. Resection and retrieval were complete. Verification of patient identification for the specimen was done by the physician and nurse using the patient's name, date and medical record number. Estimated blood loss was minimal. There was evidence of a prior end-to-end colo-colonic anastomosis in the transverse colon. This was patent and was characterized by healthy appearing mucosa. Non-bleeding external and internal hemorrhoids were found during retroflexion. The hemorrhoids were medium-sized. Normal mucosa was found in the entire colon. Biopsies for histology were taken with a cold forceps from the right colon, left colon, transverse colon and rectum for evaluation of microscopic colitis. The terminal ileum appeared normal. Biopsies were taken with a cold forceps for histology. Impression: - Preparation of the colon was fair. - One 3 mm polyp in the ascending colon, removed with a cold biopsy forceps. Resected and retrieved. - Patent end-to-end colo-colonic anastomosis, characterized by healthy appearing mucosa. - Non-bleeding external and internal hemorrhoids. - Normal mucosa in the entire examined colon. Biopsied. - The examined portion of the ileum was normal. Biopsied. Recommendation: - Patient has a contact number available for emergencies. The signs and symptoms of potential delayed complications were discussed with the patient. Return to normal activities tomorrow. Written discharge instructions were provided to the patient. - Resume previous diet. - Continue present medications. - Await pathology results. - Repeat colonoscopy in 5-10 years for surveillance based on pathology results. - Return to GI clinic as previously scheduled on 08/17/2017 at 1:30 PM. - Return to primary care physician. Axel Guillen MD Axel Guillen MD 08/03/2017 11:17:31 AM This report has been signed electronically. Number of Addenda: 0 Note Initiated On: 08/03/2017 9:56 AM Estimated Blood Loss: Estimated blood loss was minimal.
== END 2017-08-03 11:00 | disposition home or self-care (01) ==
LOC: M OPP 08:21 → EDSTATUS 09:30 → M OPP 11:00
PROVIDERS: ATTEND Internal Medicine Gastroenterology
DX: D12.2 Benign neoplasm of ascending colon (principal); Z98.0 Intestinal bypass and anastomosis status; K64.8 Other hemorrhoids; K52.9 Noninfective gastroenteritis and colitis, unspecified; R00.1 Bradycardia, unspecified; Q39.1 Atresia of esophagus with tracheo-esophageal fistula; F41.9 Anxiety disorder, unspecified; F32.9 Major depressive disorder, single episode, unspecified; F43.12 Post-traumatic stress disorder, chronic; Z79.899 Other long term (current) drug therapy

== ENCOUNTER → 2019-04-01 | Outpatient (CLI) | payer OTHER ==
[~2019-04-01] MED LIST changes: +GASTROGRAFIN SOLUTION 30ML (Q9963) As Ordered ONE; +ISOVUE-370 76% 100ML VIAL (Q9967) As Ordered ONE; +LATA0.0013 OU; -LATA5OPD OU
--- NOTE | 2019-04-01 15:24 | REP ---
HISTORY: Liver disease. COMPARISON: No priors for comparison. CONTRAST: 100 mL Isovue-370. The patient has had previous gastric pull through procedure. The lung bases are unchanged from the prior chest CT of 10/10/2016. The precontrast enhanced portion of the examination shows three faintly visible low density hepatic lesions, one in the lateral segment of the left lobe measuring approximately 3 cm and the other two in the right lobe, one anterior segment and the other in the posterior segment. There is no cholelithiasis. There is no nephrolithiasis. Contrast enhanced portion of the examination including delayed imaging shows evidence of early peripheral nodular enhancement involving all three lesions. Additionally, a fourth lesion is identified. This is also seen in the anterior segment of the right lobe and it too shows early peripheral nodular enhancement. Delayed imaging through the liver shows nearly complete contrast enhancement involving the large lesion in the lateral segment of the left lobe of the liver, however, the other smaller hepatic lesions have not enhanced completely and are barely visible. The gallbladder, spleen, pancreas, adrenal glands and kidneys are within normal limits. The abdominal aorta and periaortic regions are within normal limits. There is no free fluid or free air. The bowel loops and their mesenteries are within normal limits. CT PELVIS: The bowel loops and their mesenteries are within normal limits. There is no free fluid or free air. There is no mass or adenopathy. Bone window technique throughout the examination shows the osseous structures to be within normal limits. IMPRESSION: There are four hepatic lesions as described above, only the largest of which shows evidence of characteristic enhancement of a benign hepatic hemangioma. The other hepatic lesions initially exhibit enhancement characteristics that would be suggestive of hepatic hemangiomas, however, that cannot be confirmed by this exam. Further imaging with pre- and post gadolinium enhanced hepatic MRI is recommended. There has been previous gastric pull through procedure. Electronically Signed by Brenden Reyes DO 04/01/2019 03:46 P
== END ==
LOC: M RAD 12:28
PROVIDERS: ATTEND Physician Assistant
DX: Z87.738 Personal history of other specified (corrected) congenital malformations of digestive system (principal); K76.89 Other specified diseases of liver
CPT/HCPCS: 74170; Q9963; Q9967

== ENCOUNTER → 2021-01-16 | Outpatient (CLI) | payer OTHER ==
[~2021-01-16] MED LIST changes: +E-Z-PAQUE 96% w/w SUSP 176GM BTL As Ordered ONE; -GASTROGRAFIN SOLUTION 30ML (Q9963) As Ordered ONE; -ISOVUE-370 76% 100ML VIAL (Q9967) As Ordered ONE; -ROPI0.5T PO; +ROPI0.5T3 PO
--- NOTE | 2021-01-16 20:23 | REP ---
INDICATION: GERD, REFLUX HX OF ESOPH ATRESIA, COLON CONDUIT. COMPARISON: None. TECHNIQUE: The procedure was performed under the direct supervision of Dr. Burnett. The images were reviewed with Dr. Burnett. Liquid barium was administered in the erect and prone oblique positions. 1.9 minutes of fluoro time was utilized for this procedure. FINDINGS: The clinical resource nurse film shows no organomegaly or pathological mass is. The intestinal gas pattern is nonspecific. There are surgical sutures noted in the left upper quadrant. The oral and pharyngeal stages of deglutition are unremarkable. The patient is status post colonic conduit period the proximal anastomosis is patent with no evidence of stricture or obstruction. There is residual ingested material at the distal end of the conduit. There is no evidence of reflux. The anastomosis at the stomach is patent without evidence of stricture or obstruction. The stomach is grossly normal. The rugal folds are smooth and regular. There is no evidence of gastritis neoplasm or ulcer disease. The duodenum is grossly normal. The mucosal folds are smooth and regular. There is no evidence of duodenitis, pancreatitis, peptic ulcer disease or neoplasm. The visualized portion of the proximal small bowel appears normal in course and caliber. 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 There is residual ingested material at the distal end of the conduit. There is no evidence of stricture or obstruction at either anastomosis. The stomach and duodenum are grossly normal. <Electronically signed by Marbin Grimes > 01/16/21 1519 <Electronically signed by Emmanuel Burnett > 01/16/[id number]
== END ==
LOC: M RAD 08:48
PROVIDERS: ATTEND Surgery
DX: K21.9 Gastro-esophageal reflux disease without esophagitis (principal); Z90.49 Acquired absence of other specified parts of digestive tract

== ENCOUNTER → 2021-02-16 | Outpatient (CLI) | payer OTHER ==
[~2021-02-16] MED LIST changes: +D31000TA2 PO; -E-Z-PAQUE 96% w/w SUSP 176GM BTL As Ordered ONE; +LOPE2CAP PO; +OMEP-218 PO; +TAMS1CAP17 PO; +TRAZ-257 PO; +ZOLO100T PO
== END ==
LOC: M LABSMTC 08:06
PROVIDERS: ATTEND Anesthesiology
DX: Z01.812 Encounter for preprocedural laboratory examination (principal); Z20.822 Contact with and (suspected) exposure to COVID-19

== ENCOUNTER 2021-02-20 11:33 | Day surgery (SDC) | payer OTHER ==
[~2021-02-20] VITALS: Ht 195.6 cm; Wt 89.8 kg
[~2021-02-20 11:33] MED LIST changes: +NS 1,000 ML IV ONE
[2021-02-20] MEDS ORDERED: propofoL 200 MG/20 ML VIAL As Ordered ONE ×2 (13:59→14:10)
[2021-02-20] MEDS ORDERED: LIDOCAINE 2% 100MG/5ML SDV (FOR ANES.) As Ordered ONE (13:59)
[2021-02-20] MEDS ORDERED: fentaNYL 100 MCG/2 ML INJECTION (J3010) As Ordered ONE (13:59)
[2021-02-20] MEDS ORDERED: GLYCOPYRROLATE INJ 0.2 MG/ML 2 ML VIAL As Ordered ONE (14:01)
--- NOTE | 2021-02-20 14:38 | ROOR ---
Patient Name: Louie Alegria Procedure Date: 02/20/2021 1:59 PM Date of : 1975 Age: 45 Room: [facility] Gender: Male Note Status: Finalized Procedure: Upper GI endoscopy Indications: Epigastric abdominal pain, Suspected gastro-esophageal reflux disease Providers: Dorian Kaufman MD Referring MD: [facility] Y[facility] GALICIA [facility], Admin. Requesting Provider: Medicines: Monitored Anesthesia Care Complications: No immediate complications. Procedure: Pre-Anesthesia Assessment: - Prior to the procedure, a History and Physical was performed, and patient medications and allergies were reviewed. The patient is competent. The risks and benefits of the procedure and the sedation options and risks were discussed with the patient. All questions were answered and informed consent was obtained. Patient identification and proposed procedure were verified by the physician, the nurse and the precision instrument and tool maker in the endoscopy suite. Mental Status Examination: alert and oriented. Airway Examination: normal oropharyngeal airway and neck mobility. Respiratory Examination: clear to auscultation. CV Examination: bradycardia noted. Prophylactic Antibiotics: The patient does not require prophylactic antibiotics. Prior Anticoagulants: The patient has taken no previous anticoagulant or antiplatelet agents. ASA Grade Assessment: II - A patient with mild systemic disease. After reviewing the risks and benefits, the patient was deemed in satisfactory condition to undergo the procedure. The anesthesia plan was to use monitored anesthesia care (MAC). Immediately prior to administration of medications, the patient was re-assessed for adequacy to receive sedatives. The heart rate, respiratory rate, oxygen saturations, blood pressure, adequacy of pulmonary ventilation, and response to care were monitored throughout the procedure. The physical status of the patient was re-assessed after the procedure. The Endoscope was introduced through the mouth, and advanced to the second part of duodenum. The upper GI endoscopy was somewhat difficult due to post-surgical anatomy. The patient tolerated the procedure well. 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 Presence of mucoid substance/coating/food remnant on one side of the wall at the mid and lower colon/neoesophagus. No erythema, ulceration. Normal haustration. Both anastomoses traversed without stenosis, dilation. Localized mildly congested mucosa was found in the cardia. This was biopsied with a cold forceps for histology. To prevent bleeding after the biopsy, one hemostatic clip was successfully placed (MR conditional). There was no bleeding at the end of the procedure. There is no endoscopic evidence of bleeding, ulceration or varices in the entire examined stomach. The first portion of the duodenum and second portion of the duodenum were normal. Impression: - Congestive gastropathy. Biopsied. Clip (MR conditional) was placed. - Normal first portion of the duodenum and second portion of the duodenum. Recommendation: - Discharge patient to home (ambulatory). - Continue present medications. - Await pathology results. Procedure Code(s): --- Professional --- 52290, Esophagogastroduodenoscopy, flexible, transoral; with biopsy, single or multiple Diagnosis Code(s): --- Professional --- K31.89, Other diseases of stomach and duodenum CPT copyright 2019 [employer]. All rights reserved. The codes documented in this report are preliminary and upon pipe line repairer review may be revised to meet current compliance requirements. Dorian Kaufman MD Dorian Kaufman MD 02/20/2021 2:38:25 PM Electronically signed by Dorian Kaufman MD Number of Addenda: 0 Note Initiated On: 02/20/2021 1:59 PM Estimated Blood Loss: Estimated blood loss was minimal.
[2021-02-20 14:55] VITALS: BP 142/83
== END 2021-02-20 15:04 | disposition home or self-care (01) ==
LOC: M OPP 11:33
PROVIDERS: ATTEND Surgery
DX: K31.89 Other diseases of stomach and duodenum (principal); K21.9 Gastro-esophageal reflux disease without esophagitis; R10.13 Epigastric pain; Z79.899 Other long term (current) drug therapy; Z87.891 Personal history of nicotine dependence; Z92.84 Personal history of unintended awareness under general anesthesia
CPT/HCPCS: 43239; 88305; J3010

== ENCOUNTER → 2021-11-15 | Outpatient (CLI) | payer OTHER ==
[~2021-11-15] MED LIST changes: -D31000TA2 PO; +ISOVUE-370 76% 100ML VIAL As Ordered ONE; -NS 1,000 ML IV ONE; +OMEP-173 PO; -OMEP-218 PO; +VITA100093 PO
== END ==
LOC: M RAD 09:08
PROVIDERS: ATTEND Physician Assistant
DX: D18.03 Hemangioma of intra-abdominal structures (principal)
CPT/HCPCS: 74170; Q9967

== ENCOUNTER → 2022-04-13 | Outpatient (CLI) | payer OTHER ==
[~2022-04-13] MED LIST changes: -ISOVUE-370 76% 100ML VIAL As Ordered ONE; +XALA0.007 OU
== END ==
LOC: M LABSMTC 10:56
PROVIDERS: ATTEND Anesthesiology
DX: Z01.812 Encounter for preprocedural laboratory examination (principal); Z20.822 Contact with and (suspected) exposure to COVID-19

== ENCOUNTER 2022-04-16 10:12 | Day surgery (SDC) | payer OTHER ==
[~2022-04-16] VITALS: Ht 195.6 cm; Wt 90.9 kg
[~2022-04-16 10:12] MED LIST changes: +NS 1,000 ML IV ONE
[2022-04-16] MEDS ORDERED: propofoL 200 MG/20 ML VIAL As Ordered ONE (11:55)
[2022-04-16 12:42] VITALS: BP 114/71
== END 2022-04-16 12:50 | disposition home or self-care (01) ==
LOC: M OPP 10:12
PROVIDERS: ATTEND Surgery
DX: Z86.010 Personal history of colon polyps (principal); K64.8 Other hemorrhoids; Z98.0 Intestinal bypass and anastomosis status; K58.9 Irritable bowel syndrome, unspecified; K21.9 Gastro-esophageal reflux disease without esophagitis; M19.90 Unspecified osteoarthritis, unspecified site; F41.9 Anxiety disorder, unspecified; F32.A Depression, unspecified; F43.10 Post-traumatic stress disorder, unspecified; Z86.14 Personal history of Methicillin resistant Staphylococcus aureus infection; Z87.891 Personal history of nicotine dependence; Z79.899 Other long term (current) drug therapy

== ENCOUNTER → 2023-09-14 | Outpatient (REF) | payer OTHER ==
[~2023-09-14] MED LIST changes: -NS 1,000 ML IV ONE; -ROPI0.5T3 PO; +ROPI0.5T33 PO
== END ==
LOC: M SFHCDERM 13:51
PROVIDERS: ATTEND Physician Assistant
DX: L72.11 Pilar cyst (principal)

== ENCOUNTER → 2024-04-08 | Outpatient (CLI) | payer OTHER ==
[~2024-04-08] MED LIST changes: +ISOVUE-370 76% 100ML VIAL As Ordered ONE
== END ==
LOC: M RAD 16:58
PROVIDERS: ATTEND Physician Assistant Medical
DX: K76.9 Liver disease, unspecified (principal); R93.2 Abnormal findings on diagnostic imaging of liver and biliary tract
CPT/HCPCS: 74160; Q9967